=== PATIENT | female | born 1970 | race Hispanic/Latino ===

== ENCOUNTER 2016-11-18 13:31 | Emergency (ER) | payer OTHER ==
[~2016-11-18] VITALS: Ht 152.4 cm; Wt 80.9 kg
[2016-11-18 13:49] VITALS: BP 113/72; PULSE 77; RESP 18; O2SAT 99
--- NOTE | 2016-11-18 14:00 | ED.REPORT ---
HPI-General Illness Date of Service November 18, 2016 ED Provider: Dariusz Schmitz MD Pt is a 46 y.o. female who presents to the ED c/o dizziness onset 2 days ago. Pt states that today she experienced associated nausea, vomiting (x4), and SOB since this morning. She denies syncope. She states she has been dizzy on and off for the last few months, especially when she is at work. 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 She states that rest and laying down helps with dizziness. Patient denies past medical history. She does not take any medications. Nursing Notes Stated Complaint: DIZZY,NAUSEA,VOMITING Chief Complaint: General Complaint Nursing Notes Reviewed: Yes Allergies: Coded Allergies: ibuprofen (Verified Allergy, Unknown, Rash, 11/18/16) Scheduled Meclizine (Bonine) 25 Mg Tab.chew 25 MG PO TID General Time Seen by MD: 13:57 Chief Complaint Dizziness, Vomiting Hx Obtained From: Patient, Son Arrived By: Walk-in Sudden in Onset?: Yes Onset Occurred: 2 days ago Symptom Duration: Since onset Severity: Current: No pain currently Severity: Maximum: No pain Recent Healthcare: No recent doctor visit, No recent hospitalization Similar Sx Previous: No Past Medical History Past Medical History None reported Past Surgical History Tubal ligation Smoking History Never Smoker Social History Alcohol Use: Denies alcohol use Drug Use: Denies drug use Ambulatory Status Independent Review of Systems Full Review of Systems Constitutional: Denies: Chills, Fatigue, Fever Respiratory: Reports: Shortness of breath, Denies: Dyspnea on exertion Cardiovascular: Denies: Chest pain, Edema, Palpitations, Syncope GI: Reports: Nausea, Vomiting, Denies: Abdominal pain, Constipation, Diarrhea Female: Denies: Dysuria, Flank pain, Hematuria, Urinary frequency Musculoskeletal: Denies: Back pain, Extremity swelling Skin: Denies Diaphoresis, Denies Rash Neurologic: Reports: Dizziness, Denies: Focal weakness, Headache, Numbness, Seizure, Syncope, Vision change Psychiatric: Denies: Anxiety, Confusion Complete sys rev & neg: except as marked. Physical Exam Vital Signs Vital Signs Date Time Temp Pulse Resp B/P Pulse Ox O2 Delivery O2 Flow Rate FiO2 11/18/16 17:39 86 16 115/78 96 Room Air 11/18/16 13:49 36.6 77 18 113/72 99 Room Air Initial VS: Reviewed, Vital signs normal General/Constitutional: Well-developed, Well-nourished Head / Eyes: Atraumatic, Normocephalic ENT: Mucous membranes moist, Conjunctiva normal, No scleral icterus Neck: Supple, Non-tender, Full range of motion Respiratory: Breath sounds normal, Clear to auscultation, No respiratory distress Cardiovascular: Regular rate & rhythm, Heart sounds normal, Intact distal pulses Abdomen / GI: Soft, Non-tender, No guarding, No rebound, No distention Back: No CVA tenderness Extremities: Vascular intact, Neuro intact, No swelling, No tenderness Skin: Warm, Dry, No cyanosis Neurologic: Alert, Oriented, Nonfocal Psychiatric: Mood/affect normal, Behavior normal, Normal thought content General/Constitutional: Awake, Alert, No acute distress, Well appearing, Well developed, Well nourished, Cooperative Respiratory / Chest: Atraumatic, Breath sounds NL, Breath sounds = bilat, No respiratory distress, No wheezing Cardiovascular: Heart rate NL, Regular rhythm, Heart sounds NL, Cap refill not delayed, Peripheral circulation NL Interpretation & Diagnostics Lab Results Interpretation Result Diagram: 11/18/16 1545 11/18/16 1545 Test 11/18/16 15:45 11/18/16 16:00 11/18/16 16:45 White Blood Count 9.5th/mm3 (3.8-10.1) Red Blood Count 4.56mil/mm3 (3.90-5.20) Hemoglobin 13.4g/dL (12.0-15.6) Hematocrit 38.7% (35.0-46.0) Mean Corpuscular Volume 84.9fL (81-100) Mean Corpuscular Hemoglobin 29.4pg (27.0-35.0) Mean Corpuscular Hemoglobin Concent 34.6% (32.0-37.0) Red Cell Distribution Width 13.1% (12.3-15.4) Platelet Count 307bil/L (150-400) Neutrophils (%) (Auto) 80.5% (40-74) Lymphocytes (%) (Auto) 14.7% (14-46) Monocytes (%) (Auto) 3.7% (4-12) Eosinophils (%) (Auto) 0.7% (0-5) Basophils (%) (Auto) 0.2% (0-3) Sodium Level 135mEq/L (134-144) Potassium Level 3.6mEq/L (3.5-5.2) Chloride Level 96mEq/L (97-108) Carbon Dioxide Level 22mmol/L (18-29) Blood Urea Nitrogen 12mg/dL (6-24) Creatinine 0.42mg/dL (0.57-1.00) Estimat Glomerular Filtration Rate 235mL/min (>59) Glucose Level 113mg/dL (60-99) Calcium Level 9.3mg/dL (8.5-10.1) Total Bilirubin 0.4mg/dL (0.0-1.2) Aspartate Amino Transf (AST/SGOT) 25U/L (0-50) Alanine Aminotransferase (ALT/SGPT) 31U/L (0-32) Alkaline Phosphatase 66U/L (25-150) Total Protein 7.4g/dL (6.4-8.4) Albumin 4.2g/dL (3.4-5.0) Hold Urine Received (Received) Hold Cheney Top Tube Received (Received) Lab values outside NL range: no clinical significance. Urinalysis Interpretation Positive ketones (++) Re-Eval/Medical Decision Med Decision/Clinical Course In summary, this is a 46 year old female who presents to ED c/o dizziness, nausea and vomiting since this morning. CBC and CMP are unremarkable. UA remarkable for trace of protein and ketones. No orthostatic hypotension. Positive Isis-Hallpike maneuver which is suggestive of BPPV. Patient will be given prescription for Meclizine. Patient will follow up with PCP within a week. Counseled Regarding: Diagnosis, Lab results, Need for follow-up, When/why to return to ED Discharge & Departure Primary Impression: Benign paroxysmal positional vertigo Laterality: unspecified laterality Qualified Code: H81.10 - Benign paroxysmal vertigo, unspecified ear Disposition: Home Discharge Condition All VS Reviewed: Yes Condition: Stable Additional Instructions: Thank you for seeking care at emergency room today. Your symptoms are most likely due to benign paroxysmal positional vertigo (BPPV) . This is common, often self-limited condition, but can be chronic and relapsing. Your were taught how to do a repositioning maneuver which can be highly efficacious in resolving an episode of BPPV. Try it at home next time you feel dizzy. We are also sending you home with a prescription medication. Take it as directed when needed. Also, follow up with PCP at residency clinic as soon as you can. Please return to emergency room if you develop new or worsening symptoms: sudden syncopy, weakness, vomiting. Thank you for letting us partake in your care today. Referrals: [facility] EDSupervising Provider for APC: Dariusz Schmitz MD Attending Statement Discussed patient with resident and I reevaluated patient independently and agree with plan as above. In brief 46-year-old female with vertigo. Isis- Hallpike is positive. Symptoms improved after Chester-Hallpike. Neurological exam is normal. Given positive repositioning maneuvers and resolution with repositioning maneuvers and normal neurological exam, I do not think CT scan is indicated for this time. We will discharge with meclizine with return precautions if any other new or worsening symptoms, neurological deficits any other new or worsening symptoms.. copies to: [facility] Dariusz Schmitz MD November 18, 2016 14:00 PAULETTE MIRANDA November 18, 2016 14:36 Parvin Cope DO November 18, 2016 15:45
[2016-11-18 16:04] LABS: BASOPHILS % (AUTO) 0.2 % (0-3); EOSINOPHILS % (AUTO) 0.7 % (0-5); MONOCYTES % (AUTO) 3.7 % (4-12); Mean Corpuscular Hemoglobin 29.4 pg (27.0-35.0); Mean Corpuscular Volume 84.9 fL (81-100); NEUTROPHILS % (AUTO) 80.5 % (40-74); Platelet Count 307 bil/L (150-400)
[2016-11-18] MEDS ORDERED: MECL-114 PO (17:20)
[2016-11-18 17:39] VITALS: BP 115/78; PULSE 86; RESP 16; O2SAT 96
== END 2016-11-18 17:27 | disposition home or self-care (01) ==
LOC: SED 13:31
DX: H81.10 Benign paroxysmal vertigo, unspecified ear (principal); R06.02 Shortness of breath; R11.2 Nausea with vomiting, unspecified; Z88.6 Allergy status to analgesic agent